=== PATIENT | male | born 1985 | race Caucasian/White ===

== ENCOUNTER 2024-12-30 07:43 | Inpatient (IN) | payer OTHER, SELFPAY ==
[2024-12-27] VITALS (17 sets, daily range): BP systolic 119–160; BP diastolic 68–129; BMI 20.4; BMI 18.5
--- NOTE | 2024-12-27 17:27 | ED.GENMED ---
History of Present Illness
General
Chief Complaint: Fall
Source: patient
Exam Limitations: none
Time Seen by Provider: 12/27/24 17:25
History of Present Illness
History of Present Illness:
See MDM
Past History
Past History
ED Past Medical History: None
ED Past Surgical History: None
Social History
Tobacco: Non-smoker
Alcohol: Daily
Phy Exam
Physical Exam
Physical Exam:
See MDM
Course
Orders/Labs/Results
Orders:
Orders
12/27/24 17:25
Shoulder, Left, Trauma CR [CR Shoulder, Trauma - Left] Urgent
Comment:
Reason For Exam: fall, left shoulder pain
12/27/24 17:26
Electrocardiogram (*1) Urgent
Reason for Study: Syncope
CT Head W/o Iv Contrast Urgent
Comment:
Reason For Exam: fall, head injury, possible new seizure
EKG- Treatment ONCE
12/27/24 17:38
Alcohol Urgent
CPK [Creatine Phosphokinase] Urgent
Complete Blood Count/With Diff Urgent
Comprehensive Metabolic Panel Urgent
Magnesium Urgent
TSH Reflex To Free T4 Urgent
12/27/24 17:48
Thiamine Injection 100 mg IV NOW STA
12/27/24 18:48
Propofol [Diprivan] 20 ml .ROUTE .STK-MED
12/27/24 18:59
Propofol [Diprivan] 20 ml .ROUTE .STK-MED
12/27/24 19:13
Shoulder, Left, Trauma CR [CR Shoulder, Trauma - Left] Urgent
Comment:
Reason For Exam: post reduction
Abnormal Lab Results
12/27/24 12/27/24
17:28 17:38
MCV 101.0 H fL
(80.0-94.0)
MCH 33.3 H pg
(27.0-31.0)
Absolute Lymphs (auto) 4.2 H 10^3/uL
(1.2-3.4)
Absolute Monos (auto) 1.3 H 10^3/uL
(0.1-0.6)
Neutrophils % 39.2 L %
(42.2-75.2)
Monocytes % 14.0 H %
(1.7-9.3)
Potassium 3.4 L mmol/L
(3.5-5.1)
Carbon Dioxide 11 L* mmol/L
(22-30)
Glucose 167 H mg/dl
(70-99)
Calcium 10.3 H mg/dl
(8.4-10.2)
Magnesium 2.4 H mg/dl
(1.6-2.3)
Total Bilirubin 2.5 H mg/dl
(0.2-1.3)
AST 344 H U/L
(17-59)
ALT 119 H U/L
(0-50)
Creatine Kinase 224 H U/L
(55-170)
Total Protein 9.3 H g/dl
(6.3-8.2)
Albumin 5.8 H g/dl
(3.5-5.0)
POC Glucose 156 H mg/dl
(70-99)
12/27/24 17:38
12/27/24 17:38
Vital Signs
Initial and Last Documented VS:
Initial Vital Signs
Pulse BP Pulse Ox
87 156/68 99
12/27/24 17:25 12/27/24 17:25 12/27/24 17:25
Last Documented Vital Signs
Temp Pulse Resp BP Pulse Ox
98.3 F 106 21 147/98 97
12/27/24 19:10 12/27/24 19:10 12/27/24 19:10 12/27/24 19:10 12/27/24 19:10
Procedures
Moderate Sedation
ASA Risk Score: Class I
Chart and allergies reviewed: Yes
Consent for anesthesia obtained: Yes
Time out completed (validating right patient & procedure): Yes
Moderate Sedation Start Time(when first medication is given): 18:53
History of difficult intubation: No
Airway free of obstruction: Yes
Patient has a gag reflex: Yes
Patient is able to open mouth: Yes
Patient has no dentures: Yes
Patient has no loose teeth: Yes
Medication administered by Provider during Moderate Sedation: IV Propofol (mg)
Total dose administered: 400
Time drug administered: 18:53
Moderate Sedation Procedure End Time: 19:10
Comment: Patient required multiple extra doses of propofol for adequate sedation
Joint/Fracture Reduction
Left Anterior Proximal Shoulder:
Indication for procedure:: Left anterior shoulder dislocation
Procedure completed by: Nicola Mcdonnell DO
Consent form signed: Yes
Joint reduced: with anesthesia sedation
Injury was: closed
Further treatement: needs re-check only
Post reduction exam: stable
Capillary Refill: normal
Peripheral Pulses: radial (left): 2+
MDM/Problems Addressed
Differential Diagnosis Includes:
Note:
CHIEF COMPLAINT(S)
Fall with suspected seizure and shoulder pain.
HISTORY OF PRESENT ILLNESS
39-year-old male presented to the emergency department following an unexpected fall while visiting his in the hospital. The fall was unwitnessed, and there is consideration of a syncopal event. Upon being found on the floor, an emergency
response was initiated, during which the patient demonstrated minimal responsiveness. At the time of evaluation in the emergency department, the patient exhibits some confusion. Notably, the patient has a tongue bite, which raises suspicion for a
seizure event. He also reports severe pain in his shoulder, which upon clinical examination is suspected to be dislocated. The patient denies any history of seizures and reports no neck pain. He currently feels groggy and confused and admits to
taking medications, although specific details of these medications were not obtained.
PHYSICAL EXAM
General: Alert, no acute distress.
Skin: Warm, dry.
Head: Normocephalic, atraumatic
Neck: Appears supple, trachea midline.
Eyes, Ears, Nose, Mouth, and Throat: Moist mucous membranes. Lateral tongue bite noted
Cardiovascular: No signs of cyanosis. Regular rate rhythm
Respiratory: Respirations are non-labored.
Abdomen: Non-distended
Musculoskeletal: Step-off noted to left shoulder but distal extremity neurovascularly
Neurological: Appears confused and postictal.
Psychiatric: Mildly irritable
DIFFERENTIAL DIAGNOSIS
The Differential Diagnosis includes, in no particular order and is not limited to:
- Seizure
- Syncope
- Orthostatic hypotension
- Cardiac arrhythmia
- Transient ischemic attack (TIA)
- Hypoglycemia
- Stroke
- Vestibular dysfunction
- Drug or alcohol intoxication
- Electrolyte imbalance
SUMMARY OF ENCOUNTER
The patient was seen in the emergency department due to a fall with a suspected seizure and shoulder pain. The unwitnessed fall and presence of a tongue bite suggested a potential seizure, and the patient exhibited some confusion upon arrival.
Clinical examination raises suspicion for shoulder dislocation. An emergency response was initiated at the time of the fall due to minimal responsiveness.
ASSESSMENT
The assessment includes possible seizure with confusion, suspected shoulder dislocation, and consideration of syncope or other causes for the unwitnessed fall.
MEDICAL DECISION MAKING
1. Number and Complexity of Problems Addressed:
Chronic conditions affecting care include possible seizure, potential syncope, and dislocated shoulder.
The Differential Diagnosis includes, in no particular order and is not limited to:
- Seizure
- Syncope
- Orthostatic hypotension
- Cardiac arrhythmia
- Transient ischemic attack (TIA)
- Hypoglycemia
- Stroke
- Vestibular dysfunction
- Drug or alcohol intoxication
- Electrolyte imbalance
2. Data:
- Category 1
- Review of clinical presentation including unwitnessed fall and presence of a tongue bite, which may indicate a seizure.
- Clinical examination suggesting shoulder dislocation.
3. Risk:
- Consideration of Admission/Observation: Escalation of care including admission/observation was considered given the complexity and risk of the patients presenting complaint, exam findings, and/or their underlying comorbidities. However,
ultimately, I feel the patient is safe for outpatient management with close follow-up. Reasoning: Work-up reassuring, does not reveal any acute life/organ threatening processes, patients symptoms well controlled upon reevaluation, reexamination is
reassuring, vitals are stable, patient agreeable with discharge, reliable for follow-up.
DIAGNOSIS
- Seizure, suspected, unspecified (ICD-10: R56.9)
- Dislocation of shoulder, unspecified (ICD-10: S43.09XA)
- Syncope and collapse (ICD-10: R55)
CARE-UPDATE
12/27/24 - :41
Patient experienced foaming at the mouth and seizure-like activity, prompting an emergency response activation by nursing staff.
CARE-UPDATE
12/27/24 - :42
Patient has no previous history of seizures. He consumes alcohol daily and had inadequate food intake earlier today. Case discussed with neurology. At the moment, no need for antiepileptic drugs
CARE-UPDATE
12/27/24 - :47
Patient advised to cease driving immediately due to high suspicion of a seizure. [employer] form completed and submitted. Follow-up with primary care or neurology required for further evaluation and clearance. Patient states his last alcohol drink was
2 days ago where he had beer liquor
SUMMARY OF ENCOUNTER
The patient presented to the emergency department following an episode of syncope versus seizure, evidenced by a tongue bite and prolonged postictal state. Lab abnormalities raised the suspicion of a new-onset seizure. Additionally, the patient
experienced a left shoulder dislocation that required propofol for reduction.
DISPOSITION
Admit to the hospital.
ASSESSMENT
Concern for new-onset seizure with postictal state. Left shoulder dislocation requiring intervention.
PROCEDURES
Propofol used for reduction of left shoulder dislocation.
DIAGNOSIS
- Seizure suspicion, new onset (ICD-10: R56.9)
- Dislocation of left shoulder (ICD-10: S43.02XA)
*Pulse Oximetry
Patient hypoxic: no
*Critical Care Note
Total Time (30-74mins, 75-104mins- exclusive of procedures): Not Applicable
ED Attending Note
-
Portions of this chart may have been created with voice recognition software.� Occasional wrong word or��sound alike� substitutions may have occurred due to the inherent limitations of voice recognition software.
Discharge Plan
Departure
Patient Disposition: Admit
Date of Disposition: 12/27/24
Time of Disposition: 19:18
Admit to: Med/Surg
Presentation/result/management discussed w/ accepting MD/DO: Hospitalist
Discharge Problem:
New onset seizure, Anterior dislocation of left shoulder
Interventions
Interventions:
*Risk Screen - Suicide Last Done: 12/27/24 18:06
*General Assessment Last Done: 12/27/24 18:06
*Neglect/Abuse Screening Last Done: 12/27/24 18:06
ED-Musculoskeletal Assessment Last Done: 12/27/24 17:50
ED- Neurological Assessment Last Done: 12/27/24 17:50
ED-Skin Assessment Last Done: 12/27/24 17:50
Discharge Date and Time
Print Language: SERBIAN
[2024-12-27 17:32] LABS: Glucose - Point of Care 156 mg/dl (70-99)
[2024-12-27 17:51] LABS: Hematocrit 48.2 % (39.0-52.0); Hemoglobin 15.9 g/dL (13.0-18.0); Mean Corp Hgb Conc. 33.0 g/dL (33.0-37.0); Mean Corpuscular Volume 101.0 fL (80.0-94.0); Nucleated Red Blood Cells % 0 % (-); Platelet Count 159 10^3/uL (130-400); Red Cell Dist. Width 12.1 % (11.5-14.5)
[2024-12-27 18:10] LABS: AST (SGOT) 344 U/L (17-59); Albumin 5.8 g/dl (3.5-5.0); Alkaline Phosphatase 116 U/L (38-126); Blood Urea Nitrogen 11 mg/dl (9-20); Calcium 10.3 mg/dl (8.4-10.2); Carbon Dioxide 11 mmol/L (22-30); Chloride 102 mmol/L (98-107); Glucose 167 mg/dl (70-99); Magnesium 2.4 mg/dl (1.6-2.3); Potassium 3.4 mmol/L (3.5-5.1); Sodium 138 mmol/L (135-145); Total Protein 9.3 g/dl (6.3-8.2); eGFR > 60.00
[2024-12-27 18:17] LABS: ALT (SGPT) 119 U/L (0-50)
[2024-12-27] MEDS: THIAMINE INJECTION 100 MG IV (18:37)
--- NOTE | 2024-12-27 19:35 | HPS.HSE ---
Family Physician
-
Family Physician:
Chief Complaint
-
fall
History of Present Illness
This is a 39-year-old with past medical history significant for asthma and history of prior alcohol abuse who was brought to the emergency department after an emergency response in the hospital where he was visiting his and found to be
unresponsive in the elevator.
Patient reported that he does drink alcohol but states amount of drinking has been reduced recently and states that he drinks up to 6 bottles of nonalcoholic beer every day. He said his last drink was 2 days ago and he has not been drinking due to
his being in labor and just had a delivery.
Patient reported that he was slightly tremulous this morning but not more so than usual. He reported that he did have a small amount of breakfast but generally felt lightheaded which was made worse while riding an elevator to get standing to eat
today. He denies prior history of withdrawal seizures. He denies any prior history of alcohol withdrawal syndrome with delirium tremens. He denies any other drug use.
Patient was found by EMS unresponsive and he had a tongue bite. He was postictal on arrival to the emergency department. He did have a dislocation of the left shoulder and is status post shoulder reduction on and had propofol during the episode.
When I spoke to the patient he was awake alert and oriented with minimal tremulousness.
In the emergency department his current vital signs were stable with a blood pressure of 141/98, pulse of 100 and respiratory rate of 20. He had a temp of 98.3 and is satting 90% on room air. ECG shows a normal sinus rhythm at a rate of [address] or T wave changes. CT of the head shows no acute findings.
The labs notable for a normal CBC. Electrolytes were notable for a bicarb of 11 with normal BUN and creatinine. He does have elevated AST to 344 ALT 04/06/2018 and a T. bili of 2.5. CPK was elevated at 220. Alcohol level was undetectable.
Medical History
Past Medical History
Past Medical History: Reports Other (etoh abuse)
Past Surgical History: Reports Other (hernia repair)
Social History
Tobacco: Vaping
Alcohol: Chronic Alcoholic
Drug: None
Personal:
Living: With Family
Family History
Family History: Not pertinent
Allergies / Home Medications
Allergies reflects when Allergies were last updated in [facility].
Home Medications with original date entered in [facility]
Allergy/Medication List:
Allergies
Allergy/AdvReac Type Severity Reaction Status Date / Time
No Known Allergies Allergy Verified 12/27/24 17:47
Review of Systems
-
Constitutional: Reports No Symptoms
EENT: Reports No Symptoms
Respiratory: Reports No Symptoms
Cardiac: Reports No Symptoms
Abdomen/GI: Reports No Symptoms
: Reports No Symptoms
Musculoskeletal: Reports No Symptoms
Skin: Reports No Symptoms
Neurological: Reports No Symptoms
Endocrine: Reports No Symptoms
Hematologic/Lymphatic: Reports No Symptoms
Psych: Reports No Symptoms
Physical Exam
Vital Signs
Vital Signs
Temp Pulse Resp BP Pulse Ox
98.3 F 106 21 147/98 97
12/27/24 19:10 12/27/24 19:10 12/27/24 19:10 12/27/24 19:10 12/27/24 19:10
Physical Exam
General: No Apparent Distress and Other (underweight appearing)
HEENT: NormoCephalic, Moist mucous membranes, Atraumatic and Oxygen
Respiratory: Clear
Cardiac: S1/S2 and Regular Rhythm; No Murmur or Rub
GI: Soft, Non Tender, Non Distended and Normal Bowel Sounds; No Organomegaly
Rectal: Deferred by Provider
Musculoskeletal: No Clubbing, No Cyanosis and No Edema
Skin: No Rash
Neuro: AO x 3 and Nonfocal/grossly intact
Psych: Calm
Laboratory Results
-
10/24/25 17:38
12/27/24 17:38
Laboratory Results
Total Bilirubin 2.5 mg/dl (0.2-1.3) H 12/27/24 17:38
AST 344 U/L (17-59) H 12/27/24 17:38
ALT 119 U/L (0-50) H 12/27/24 17:38
Alkaline Phosphatase 116 U/L (38-126) 12/27/24 17:38
Data Reviewed
-
Diagnostic Radiology: Report Reviewed by me
Medical Tests (Nuc Med, Echo, EKG etc): Image Personally Visualized and interpreted
Lab Data: Labs Reviewed by me
Impression/Plan
-
IMPRESSION:
39 y.o with history of prior ETOH abuse states cutting down who had a fall while in the elevator and noted to be unresponsive, had tongue biting (left lateral surface of tongue), was post-ictal in presentation but now alert and oriented. The tongue
biting, post-ictal depression, h/o etoh and labs are c/w seizure episode. Last drink was 2 days ago. Denies prior history of withdrawal seizures. Reports daily intake of at least 6 'non-alcoholic' beers. Tbili of 2.5 with AST/ALT ratio suggests
ongoing alcoholic liver injury. Currently without signs of severe withdrawal but is recently post-ictal and has just received propofol for shoulder reduction.
PLAN:
Seizure - Suspected alcohol withdrawal seizure, last drink about 48 hours ago. Mod to High risk for DT.
- admit to telemetry for now
- start MSAS withdrawal protocol
- IV fluids with thiamine/folate supplementation
- start phenobarbital taper
- UDS
- follow up labs
- case management
- psych consult
DVT PPX - SCDs
Code status - Full Code
[2024-12-27] MEDS: ATIVAN 1 MG IV (19:51)
--- NOTE | 2024-12-27 21:30 | PTCARENOTE ---
Pillows placed on bed rails for safety while awaiting seizure pads.
--- NOTE | 2024-12-27 21:30 | PTCARENOTE ---
Received patient from ED. Patient ambulated with minimum assist to bedside. Patient assessed. Sling in place on left arm. Pain was controlled in the ED with Morphine per the patient. VSS. Sinus rhythm on the monitor. Patient oriented to the unit.
Call fernandes in reach. Patient verbalized an understanding to ring for all transfers. Bed alarm placed for safety.
[2024-12-27] MEDS: D5LR 1000 IV (22:30)
[2024-12-27] MEDS: PHENOBARBITAL 104 MG IV (22:43)
[2024-12-28] MEDS: THIAMINE INJECTION 200 MG IV ×4 (00:20→23:23)
[2024-12-28] MEDS: TORADOL 15 MG IV ×4 (00:34→20:21)
[2024-12-28 03:06] VITALS: BP 132/79
[2024-12-28 07:28] VITALS: BP 149/75
--- NOTE | 2024-12-28 07:29 | W.PN.HOSP.TC ---
Today's Communication/Plan
-
Continue phenobarb taper and alcohol withdrawal protocol
Assessment / Plan
Assessment / Plan
Physical Exam
General: No Apparent Distress
HEENT: Normocephalic, Moist mucous membranes
Respiratory: Clear to Auscultation Bilaterally
Cardiac: S1/S2 and Regular Rhythm. Tachycardic.
GI: Soft, Non Tender, Non Distended and Normal Bowel Sounds;
Musculoskeletal: No Cyanosis and No Edema
Skin: Warm. Dry.
Neuro: AAO x 3 and Nonfocal/grossly intact
Psych: Calm
Assessment/Plan
39-year-old amle with past medical history significant for asthma and history of prior alcohol abuse who was brought to the emergency department after an emergency response in the hospital where he was visiting his and found to be unresponsive
in the elevator. Patient reported that he does drink alcohol but states amount of drinking has been reduced recently and stated that he drinks up to 6 bottles of nonalcoholic beer every day. He said his last drink was on 12/25/24 and he has not
been drinking due to his being in labor and just had a delivery.
Patient reported that he was slightly tremulous on 12/27/24 morning but not more so than usual. He denied prior history of withdrawal seizures. He denied any prior history of alcohol withdrawal syndrome with delirium tremens. He denies any other
drug use.
Patient was found by EMS unresponsive and he had a tongue bite. He was postictal on arrival to the emergency department. He did have a dislocation of the left shoulder and is status post shoulder reduction on and had propofol during the episode.
The labs notable for a normal CBC. Electrolytes were notable for a bicarb of 11 with normal BUN and creatinine. He does have elevated AST to 344 ALT 04/06/2018 and a T. bili of 2.5. CPK was elevated at 220. Alcohol level was undetectable.
Reports of daily intake of at least 6 'non-alcoholic' beers
Seizure - Suspected alcohol withdrawal seizure, last drink about 48 hours ago. Mod to High risk for DT.
- Last drink was 12/25/24
- The tongue biting, post-ictal depression, h/o etoh and labs are c/w seizure episode.
- Continue MSAS withdrawal protocol
- IV fluids with thiamine/folate supplementation
- Continue phenobarbital taper
- UDS was positive for benzos and barbiturates, but patient received Ativan in the ER on 12/27/24 evening and also getting Phenobarb, both were given before the UDS
- case management
- psych consult as history seems inconsistent with the overall clinical picture of alcohol withdrawal and family saying he has not had much alcohol recently
- Patient's family requested neurology consult; neurology has been consulted
- ED provider filled out [employer] form.
Dislocated Shoulder from Suspected Seizure and Fall
- Was reduced in the ER
Anion Gap Metabolic Acidosis
- Patient had not eaten or drank any fluids for 2-3 days and also suspected alcohol use as well, suspected starvation ketoacidosis or alcoholic ketoacidosis
- Resolved with IV fluids
Transaminitis
-Patient's labs from October 2024 were borderline normal with his AST and ALT, now the levels are worse
-AST>ALT, by a ratio greater than 2:1 which strongly suggests alcoholic liver injury
Hypokalemia
-Replaced
-Continue to monitor
DVT PPX - SCDs. Lovenox.
Code status - Full Code
Anticipated Discharge: > 48 hours
Subjective/Interval History
-
Date of Service: December 28, 2024
Patient was seen and examined. He denied any new symptoms or complaints.
Objective Data
-
Labs:
Laboratory Results
12/28/24
06:25
PT Pending
INR Pending
APTT Pending
Vital Signs:
Vital Signs
Temp Pulse Resp BP Pulse Ox
98.3 F 81 18 149/75 98
12/28/24 07:28 12/28/24 07:28 12/28/24 07:28 12/28/24 07:28 12/28/24 07:28
I&O
12/27/24 12/28/24 12/29/24
06:59 06:59 06:59
Intake Total 1140 / 1140
Balance 1140 / 1140
[2024-12-28 07:34] LABS: INR 0.94; PT 12.9 Sec (11.4-14.6)
[2024-12-28 07:35] LABS: APTT 26.7 Sec (23.4-35.0)
[2024-12-28] MEDS: D5LR 1000 IV ×2 (07:36→18:30)
[2024-12-28] MEDS: FOLVITE 1 MG PO (07:37)
[2024-12-28] MEDS: PHENOBARBITAL 97.5 MG IV ×3 (07:37→21:48)
[2024-12-28 08:03] LABS: ALT (SGPT) 89 U/L (0-50); AST (SGOT) 133 U/L (17-59); Albumin 4.0 g/dl (3.5-5.0); Alkaline Phosphatase 88 U/L (38-126); Blood Urea Nitrogen 12 mg/dl (9-20); Calcium 9.0 mg/dl (8.4-10.2); Carbon Dioxide 26 mmol/L (22-30); Chloride 106 mmol/L (98-107); Estimated Creatinine Clearance > 125 ml/min; GGTP 725 U/L (15-73); Glucose 101 mg/dl (70-99); Magnesium 2.3 mg/dl (1.6-2.3); Potassium 3.2 mmol/L (3.5-5.1); Sodium 135 mmol/L (135-145); Total Protein 6.9 g/dl (6.3-8.2); eGFR > 60.00
[2024-12-28 11:41] VITALS: BP 146/85
[2024-12-28] MEDS: KCL 40 MEQ PO (12:09)
[2024-12-28 12:21] LABS: Urine Character Clear (Clear)
[2024-12-28 12:59] LABS: Urine Red Blood Cell 0-2 /HPF (0-2); Urine Squamous Cell None seen /LPF (Few); Urine White Cell 0-2 /HPF (0-5)
--- NOTE | 2024-12-28 13:56 | CM ---
CM following re: discharge planning.
Reviewed pt's chart, met with pt.
Pt is a 39 year old male, admitted with OBS status and primary dx of Seizure - Suspected alcohol withdrawal seizure, last drink about 48 hours ago. OBS status explained to the pt, pt expressed understanding OBS letter signed, placed on chart, pt
has a copy.
Pt reports he lives with spouse and 3 children in a 2SH, 3 steps to enter. Pt admitted to significant h/o alcohol abuse that started at the age of 21 from being a social drinker and per pt in the past 4 years he has been drinking heavily. Pt reports
he choice of drink is beer and hard liquor. Pt reports he tried to go to AA meetings and did nit like it, never been in inpatient D&A rehab. Pt stated after talking to his he decided to safe the family and pr expressed his strong desire to go
to inpatient residential D&A rehab. pt agrees to meet with [facility] team. A referral to [facility] made.
D/C plan: Inpatient residential D&A rehab. [facility] following.
CM will follow to assist pt with discharge to inpatient residential D&A rehab.
[2024-12-28 15:01] VITALS: BP 139/78
--- NOTE | 2024-12-28 15:58 | CS.PSYCHR ---
Consult Summary - Psychiatry
-
Patient seen by me 12/28/2024 from 2:05pm-2:35pm
Psychiatry consult for alcohol use disorder/withdrawal seizure. 39 yo male admitted today after possible seizure. Patient has given inconsistent history. Case management note indicates that patient was forthcoming with regular alcohol use and agreed
to D&A rehab treatment, at which time [facility] referral was made. With me, he says his last alcoholic drink was in November and that he has only been drinking non alcoholic beer since then. He then says he does not know if he needs rehab or not. He
does admit that at the peak of his drinking dependency, he was drinking 1/2-1 pint of Enrrique Ledezma a day. I spoke with both his parents who are upset that his seizure is being called alcoholic withdrawal bc they believe he hasn't drank since
November. They think patient was overtired and had not been eating properly which lead to this admission.
He denies mental health history other than ADHD.
UDS + barbs, benzos
no etoh detected
MSE- patient is cooperative but answers are vague particularly regarding alcohol use. He denies depression. He denies SI/HI/AVH. no delusions. fully oriented. appears restless.
Past psych- reports ADHD history. does not know what medication he was taking
PMH- left shoulder dislocations, new onset seizure, self reported lab abnormality history secondary to alcohol
Social- lives with and 2 kids. is currently also at since she just had their third child
Family history- mother has history of drinking wine
A/P- 39 yo male with alcohol use disorder and inconsistent history of this condition. Concern was for alcohol withdrawal seizure and would treat this as alcohol withdrawal. encouraged patient to think about what kind of help he thinks he needs and
if D&A rehab would be a reasonable next step once medically stable. The choice is his. He understands. Case discussed with primary team.
--- NOTE | 2024-12-28 16:55 | CON.NEURO ---
Consultation
Order
Date of Consultation: 12/28/24
Requesting Provider: Gilberto Solo MD
Reason for Consult: Seizure
Neurology Consultation Note.
HPI: This is a 39-year-old right-handed man was found unresponsive in a hospital elevator on 12/27/2024.
Mr. Calixto admits to be sleep-deprived for approximately 32-36 hours, getting only brief 20-minute catnaps. He drove his to the hospital around midnight on , and she delivered their third baby.
The patient describes poor oral intake, noting he is 'known to not eat a lot' and typically prefers eating at night. Yesterday morning he had a small piece of his 's omelet containing mushrooms, which he dislikes, and this 'almost made him
vomit' and ruined his appetite for hours. He was going downstairs to get a pretzel from a vending machine when the incident occurred. He remembers going down in the elevator but his next memory is waking up in the emergency room. No reports of head
trauma, headaches, change in vision, history of febrile seizure. Patient did have associated tongue injury with a spell.
Mr. Andres suffered left shoulder dislocation during the episode and underwent successful reduction.
The patient denies any history of seizures, including febrile seizures as a child. He reports no numbness or tingling in his left hand but notes ongoing shoulder pain, rating it as improved from earlier. 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
Regarding substance use, he reports his last alcoholic drink was approximately 6 months ago. He had been drinking nightly for 3-4 years starting during when he lost his job and experienced stress with their first baby, typically having whiskey
on the rocks. He weaned off alcohol after he was found to have hepatic steatosis and now drinks non-alcoholic beer. He was previously on Adderall but discontinued it because his felt it wasn't helping with his focus issues, and his primary care
physician was considering alternative medications or dosing when liver issues were discovered through routine blood work.
ER VS: 156/68, 87�139, afebrile
EKG:NSR, QTcB Int : 467 ms
PDMP:Dextroamp-Amphetamin 20 Mg 60 tablets filled in on .
Labs: Glucose�167, EtOH�negative, normal sodium, CO2�11, corrected Ca 8.9�mg/dL, magnesium�2.4, total bili�2.5, GGT�725, AST�344, ALT�190, CK�224, normal TSH, MCV�101.0,, UA�positive for leukocyte esterase, bacteria.
UA tox�positive for benzodiazepines and barbiturates.
MAR: Lorazepam, phenobarbital.
CT head wo contrast�no acute abnormality
PMH: hepatic steatosis, alcohol use DO in remission, ADHD
PSH: Hernia repair, wisdom teeth extraction
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
FH: mother-stroke, alcohol addiction
All:NKDA
ROS: General: Positive for fatigue and decreased appetite.
Musculoskeletal: Positive for left shoulder pain with limited range of motion.
Neurological: Negative for numbness or tingling in left hand.
General: Well developed. In no acute distress.
Cardio: Regular rate and rhythm without murmur. Extremities are without cyanosis or edema.
Neuro:
Mental Status: Alert, oriented to person, place, and date. Normal attention and recall. Good fund of knowledge. Follows complex requests across the midline. Comprehension, naming, and repetition intact.
Cranial Nerves: Pupils are equally round and reactive to light. EOMs full. Visual dominguez full to confrontation. No ptosis. No nystagmus. V1-V3 intact to light touch and pinprick bilaterally, symmetric. Face symmetric. Normal hearing AU. The
palate elevated well. SCMs and traps 5/5. Tongue midline. No dysarthria.
Motor: Normal bulk and tone. No pronator or arm drift. Strength 5/5 throughout. No clonus.
Reflexes: 2+ throughout the upper extremities and knees. Plantar responses flexor bilaterally. Negative clonus bilateral
Sensory: Normal vibration at the toes
Coordination: No dysmetria or tremor.
Gait: deferred
Assessment and Plan:
I. Symptomatic seizure
II. Alcohol use disorder in remission
III. Increased QTcB Int
-Seizure precaution
-No indications for long-term AED
-No driving for 6 months
-Please continue IV thiamine
-Continue phenobarbital
-Brain MRI without michael
-Routine EEG
- Case was discussed with patient's spouse
I personally reviewed all radiology and labs along with past medical records pertinent to current medical problems. Total time spent in patient care is 61 minutes.
Thank you for allowing us to participate in the care of this patient. We will continue to follow. Please do not hesitate to contact us with any questions or concerns.
Subjective/Objective
Subjective Data
Date of Service: December 28, 2024
Objective Data
Vital Signs
Temp Pulse Resp BP Pulse Ox
36.9 C 83 17 139/78 99
12/28/24 15:01 12/28/24 15:01 12/28/24 15:01 12/28/24 15:01 12/28/24 15:01
Lab Results
12/27/24 17:38
12/28/24 07:28
PT 12.9 Sec (11.4-14.6) 12/28/24 06:25
INR 0.94 12/28/24 06:25
APTT 26.7 Sec (23.4-35.0) 12/28/24 06:25
Sodium Cancelled 12/28/24 07:28
Potassium Cancelled 12/28/24 07:28
BUN Cancelled 12/28/24 07:28
Glucose Cancelled 12/28/24 07:28
Calcium Cancelled 12/28/24 07:28
Phosphorus 3.6 mg/dl (2.5-4.5) 12/28/24 06:25
Ur Buprenorphine Negative (Negative) 12/28/24 11:43
Patient Allergies
No Known Allergies Allergy (Verified 12/27/24 17:47)
Medications
-
Active Medications
Generic Name Dose Route Start Last Admin
Trade Name Freq PRN Reason Stop Dose Admin
Acetaminophen 650 mg 12/27/24 21:40
Acetaminophen 325 Mg Tablet PO 01/24/25 21:39
Q6HPRN PRN
mild pain/ fever>100.5F
Folic Acid 1 mg 12/28/24 08:00 12/28/24 07:37
Folic Acid 1 Mg Tablet PO 01/25/25 07:59 1 mg
DAILY ALIX Administration
Folic Acid 1 mg/ Sodium 50.2 mls @ 200.8 mls/hr 12/27/24 21:40
Chloride IV 01/24/25 21:39
DAILYPRN PRN
if NPO
Dextrose/Lactated Ringer's 1,000 mls @ 75 mls/hr 12/27/24 21:40 12/28/24 07:36
D5lr IV 1,000 mls
.[id number] ALIX Administration
Ketorolac Tromethamine 15 mg 12/27/24 21:40 12/28/24 12:53
Ketorolac 15 Mg/Ml Injection IV 01/01/25 21:39 15 mg
Q6HPRN PRN Administration
moderate pain
Lorazepam 1 mg 12/27/24 21:40
Lorazepam 1 Mg Tablet PO 01/24/25 21:39
Q2HPRN PRN
MSAS 5-7
Lorazepam 1 mg 12/27/24 21:40
Lorazepam 2 Mg/Ml Vial IV 01/24/25 21:39
Q1HPRN PRN
MSAS 8-11
Lorazepam 2 mg 12/27/24 21:40
Lorazepam 2 Mg/Ml Vial IV 01/24/25 21:39
Q1HPRN PRN
MSAS > 11
Phenobarbital Sodium 64.8 mg 12/30/24 08:00
Phenobarbital 32.4 Mg Tablet PO 12/31/24 22:01
TID ALIX
Phenobarbital Sodium 32.4 mg 01/01/25 08:00
Phenobarbital 32.4 Mg Tablet PO 01/02/25 22:01
TID ALIX
Phenobarbital Sodium 97.5 mg 12/28/24 08:00 12/28/24 15:08
Phenobarbital (65 Mg/Ml) 1 Ml Vial IV 12/29/24 22:01 97.5 mg
TID ALIX Administration
Sodium Chloride 0 ml 12/27/24 21:40
Sodium Chloride 0.9% (Preservative Free) 10 Ml Vial IV 01/24/25 21:39
PRN PRN
To dilute IV Ativan
Protocol
Thiamine HCl 200 mg 12/28/24 00:00 12/28/24 15:08
Thiamine (100 Mg/Ml) 2 Ml Vial IV 12/30/24 16:01 200 mg
Q8 ALIX Administration
Thiamine HCl 100 mg 12/30/24 20:00
Thiamine 100 Mg Tablet PO 01/27/25 19:59
BID ALIX
Vital Signs and Labs
-
Vital Signs and Labs:
Vital Signs
Temp Pulse Resp BP Pulse Ox
36.9 C 83 17 139/78 99
12/28/24 15:01 12/28/24 15:01 12/28/24 15:01 12/28/24 15:01 12/28/24 15:01
Lab Results
12/27/24 17:38
12/28/24 07:28
PT 12.9 Sec (11.4-14.6) 12/28/24 06:25
INR 0.94 12/28/24 06:25
APTT 26.7 Sec (23.4-35.0) 12/28/24 06:25
Sodium Cancelled 12/28/24 07:28
Potassium Cancelled 12/28/24 07:28
BUN Cancelled 12/28/24 07:28
Glucose Cancelled 12/28/24 07:28
Calcium Cancelled 12/28/24 07:28
Phosphorus 3.6 mg/dl (2.5-4.5) 12/28/24 06:25
Ur Buprenorphine Negative (Negative) 12/28/24 11:43
Medications
-
Medications:
Generic Name Dose Route Start Last Admin
Trade Name Freq PRN Reason Stop Dose Admin
Acetaminophen 650 mg 12/27/24 21:40
Acetaminophen 325 Mg Tablet PO 01/24/25 21:39
Q6HPRN PRN
mild pain/ fever>100.5F
Folic Acid 1 mg 12/28/24 08:00 12/28/24 07:37
Folic Acid 1 Mg Tablet PO 01/25/25 07:59 1 mg
DAILY ALIX Administration
Folic Acid 1 mg/ Sodium 50.2 mls @ 200.8 mls/hr 12/27/24 21:40
Chloride IV 01/24/25 21:39
DAILYPRN PRN
if NPO
Dextrose/Lactated Ringer's 1,000 mls @ 75 mls/hr 12/27/24 21:40 12/28/24 07:36
D5lr IV 1,000 mls
.[id number] ALIX Administration
Ketorolac Tromethamine 15 mg 12/27/24 21:40 12/28/24 12:53
Ketorolac 15 Mg/Ml Injection IV 01/01/25 21:39 15 mg
Q6HPRN PRN Administration
moderate pain
Lorazepam 1 mg 12/27/24 21:40
Lorazepam 1 Mg Tablet PO 01/24/25 21:39
Q2HPRN PRN
MSAS 5-7
Lorazepam 1 mg 12/27/24 21:40
Lorazepam 2 Mg/Ml Vial IV 01/24/25 21:39
Q1HPRN PRN
MSAS 8-11
Lorazepam 2 mg 12/27/24 21:40
Lorazepam 2 Mg/Ml Vial IV 01/24/25 21:39
Q1HPRN PRN
MSAS > 11
Phenobarbital Sodium 64.8 mg 12/30/24 08:00
Phenobarbital 32.4 Mg Tablet PO 12/31/24 22:01
TID ALIX
Phenobarbital Sodium 32.4 mg 01/01/25 08:00
Phenobarbital 32.4 Mg Tablet PO 01/02/25 22:01
TID ALIX
Phenobarbital Sodium 97.5 mg 12/28/24 08:00 12/28/24 15:08
Phenobarbital (65 Mg/Ml) 1 Ml Vial IV 12/29/24 22:01 97.5 mg
TID ALIX Administration
Sodium Chloride 0 ml 12/27/24 21:40
Sodium Chloride 0.9% (Preservative Free) 10 Ml Vial IV 01/24/25 21:39
PRN PRN
To dilute IV Ativan
Protocol
Thiamine HCl 200 mg 12/28/24 00:00 12/28/24 15:08
Thiamine (100 Mg/Ml) 2 Ml Vial IV 12/30/24 16:01 200 mg
Q8 ALIX Administration
Thiamine HCl 100 mg 12/30/24 20:00
Thiamine 100 Mg Tablet PO 01/27/25 19:59
BID ALIX
--- NOTE | 2024-12-28 16:58 | PTCARENOTE ---
Patient AAOX3, ambulatory in room though occasionally unsteady on feet, bed alarm in place. MSAS protocol in place per MD order, patient NSR on monitor, mild hand tremors and diaphoresis at times, patient states no complaints other than L shoulder
soreness partially relieved with PRN IV Toradol - see MAY. L arm in sling, IVF infusing through R wrist. Patient continually denies any recent alcohol use to this RN - MD aware.
[2024-12-28] MEDS: LOVENOX 40 MG SC (18:30)
[2024-12-28 19:21] VITALS: BP 133/78
[2024-12-28 20:51] LABS: Potassium 3.6 mmol/L (3.5-5.1)
[2024-12-28 23:28] VITALS: BP 141/89
[2024-12-29 03:49] VITALS: BP 126/80
[2024-12-29 07:16] VITALS: BP 148/85
[2024-12-29] MEDS: D5LR 1000 IV (08:14)
[2024-12-29] MEDS: TORADOL 15 MG IV (08:15)
[2024-12-29] MEDS: PHENOBARBITAL 97.5 MG IV ×3 (08:16→23:46)
[2024-12-29] MEDS: THIAMINE INJECTION 200 MG IV ×3 (08:16→23:45)
[2024-12-29] MEDS: FOLVITE 1 MG PO (08:16)
[2024-12-29 09:27] LABS: Hematocrit 36.3 % (39.0-52.0); Hemoglobin 13.0 g/dL (13.0-18.0); Mean Corp Hgb Conc. 35.8 g/dL (33.0-37.0); Mean Corpuscular Volume 95.3 fL (80.0-94.0); Platelet Count 113 10^3/uL (130-400); Red Cell Dist. Width 11.9 % (11.5-14.5)
[2024-12-29 09:49] LABS: ALT (SGPT) 64 U/L (0-50); AST (SGOT) 73 U/L (17-59); Albumin 3.9 g/dl (3.5-5.0); Alkaline Phosphatase 74 U/L (38-126); Blood Urea Nitrogen 6 mg/dl (9-20); Calcium 8.9 mg/dl (8.4-10.2); Carbon Dioxide 29 mmol/L (22-30); Chloride 106 mmol/L (98-107); Estimated Creatinine Clearance > 125 ml/min; Glucose 93 mg/dl (70-99); Potassium 3.4 mmol/L (3.5-5.1); Sodium 136 mmol/L (135-145); Total Protein 6.7 g/dl (6.3-8.2); eGFR > 60.00
--- NOTE | 2024-12-29 11:06 | W.PN.NEURO.1 ---
Today's Communication / Plan
-
.
Subjective/Objective
Subjective Data
Date of Service: December 29, 2024
Neurology follow-up note.
HPI: No acute events overnight. No recurrent seizures. Patient endorses ongoing insomnia.
Brain MRI�no acute abnormalities.
PMH: hepatic steatosis, alcohol use DO in remission, ADHD
PSH: Hernia repair, wisdom teeth extraction
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
FH: mother-stroke, alcohol addiction
All:NKDA
ROS: General: Positive for fatigue and decreased appetite.
Musculoskeletal: Positive for left shoulder pain with limited range of motion.
Neurological: Negative for numbness or tingling in left hand.
General: Well developed. In no acute distress.
Cardio: Regular rate and rhythm without murmur. Extremities are without cyanosis or edema.
Neuro:
Mental Status: Alert, oriented to person, place, and date. Normal attention and recall. Good fund of knowledge. Follows complex requests across the midline. Comprehension, naming, and repetition intact.
Cranial Nerves: Pupils are equally round and reactive to light. EOMs full. Visual dominguez full to confrontation. No ptosis. No nystagmus. V1-V3 intact to light touch and pinprick bilaterally, symmetric. Face symmetric. Normal hearing AU. The
palate elevated well. SCMs and traps 5/5. Tongue midline. No dysarthria.
Motor: Normal bulk and tone. No pronator or arm drift. Strength 5/5 throughout. No clonus.
Coordination: No dysmetria or tremor.
Gait: deferred
Assessment and Plan:
I. Symptomatic seizure
II. Alcohol use disorder
III. Increased QTcB Int
- Seizure precaution
- No driving for 6 months
- Please continue IV thiamine, PB
- Routine EEG
I personally reviewed all radiology and labs along with past medical records pertinent to current medical problems. Total time spent in patient care is 25 minutes.
Thank you for allowing us to participate in the care of this patient. Please do not hesitate to contact us with any questions or concerns.
Objective Data
Vital Signs
Temp Pulse Resp BP Pulse Ox
37.0 C 73 16 148/85 99
12/29/24 07:16 12/29/24 07:16 12/29/24 07:16 12/29/24 07:16 12/29/24 07:16
Lab Results
12/29/24 08:42
12/29/24 08:41
PT 12.9 Sec (11.4-14.6) 12/28/24 06:25
INR 0.94 12/28/24 06:25
APTT 26.7 Sec (23.4-35.0) 12/28/24 06:25
Sodium 136 mmol/L (135-145) 12/29/24 08:41
Potassium 3.4 mmol/L (3.5-5.1) L 12/29/24 08:41
BUN 6 mg/dl (9-20) L 12/29/24 08:41
Glucose 93 mg/dl (70-99) 12/29/24 08:41
Calcium 8.9 mg/dl (8.4-10.2) 12/29/24 08:41
Phosphorus 3.6 mg/dl (2.5-4.5) 12/28/24 06:25
Ur Buprenorphine Negative (Negative) 12/28/24 11:43
Patient Allergies
No Known Allergies Allergy (Verified 12/27/24 17:47)
Vital Signs and Labs
-
Vital Signs and Labs:
Vital Signs
Temp Pulse Resp BP Pulse Ox
37.0 C 73 16 148/85 99
12/29/24 07:16 12/29/24 07:16 12/29/24 07:16 12/29/24 07:16 12/29/24 07:16
Lab Results
12/29/24 08:42
12/29/24 08:41
PT 12.9 Sec (11.4-14.6) 12/28/24 06:25
INR 0.94 12/28/24 06:25
APTT 26.7 Sec (23.4-35.0) 12/28/24 06:25
Sodium 136 mmol/L (135-145) 12/29/24 08:41
Potassium 3.4 mmol/L (3.5-5.1) L 12/29/24 08:41
BUN 6 mg/dl (9-20) L 12/29/24 08:41
Glucose 93 mg/dl (70-99) 12/29/24 08:41
Calcium 8.9 mg/dl (8.4-10.2) 12/29/24 08:41
Phosphorus 3.6 mg/dl (2.5-4.5) 12/28/24 06:25
Ur Buprenorphine Negative (Negative) 12/28/24 11:43
Medications
-
Medications:
Generic Name Dose Route Start Last Admin
Trade Name Freq PRN Reason Stop Dose Admin
Acetaminophen 650 mg 12/27/24 21:40
Acetaminophen 325 Mg Tablet PO 01/24/25 21:39
Q6HPRN PRN
mild pain/ fever>100.5F
Enoxaparin Sodium 40 mg 12/28/24 19:00 12/28/24 18:30
Enoxaparin Sodium 40 Mg/0.4 Ml Syringe SC 01/25/25 18:59 40 mg
QPM ALIX Administration
Folic Acid 1 mg 12/28/24 08:00 12/29/24 08:16
Folic Acid 1 Mg Tablet PO 01/25/25 07:59 1 mg
DAILY ALIX Administration
Folic Acid 1 mg/ Sodium 50.2 mls @ 200.8 mls/hr 12/27/24 21:40
Chloride IV 01/24/25 21:39
DAILYPRN PRN
if NPO
Dextrose/Lactated Ringer's 1,000 mls @ 75 mls/hr 12/27/24 21:40 12/29/24 08:14
D5lr IV 1,000 mls
.[id number] ALIX Administration
Ketorolac Tromethamine 15 mg 12/27/24 21:40 12/29/24 08:15
Ketorolac 15 Mg/Ml Injection IV 01/01/25 21:39 15 mg
Q6HPRN PRN Administration
moderate pain
Lorazepam 1 mg 12/27/24 21:40
Lorazepam 1 Mg Tablet PO 01/24/25 21:39
Q2HPRN PRN
MSAS 5-7
Lorazepam 1 mg 12/27/24 21:40
Lorazepam 2 Mg/Ml Vial IV 01/24/25 21:39
Q1HPRN PRN
MSAS 8-11
Lorazepam 2 mg 12/27/24 21:40
Lorazepam 2 Mg/Ml Vial IV 01/24/25 21:39
Q1HPRN PRN
MSAS > 11
Phenobarbital Sodium 64.8 mg 12/30/24 08:00
Phenobarbital 32.4 Mg Tablet PO 12/31/24 22:01
TID ALIX
Phenobarbital Sodium 32.4 mg 01/01/25 08:00
Phenobarbital 32.4 Mg Tablet PO 01/02/25 22:01
TID ALIX
Phenobarbital Sodium 97.5 mg 12/28/24 08:00 12/29/24 08:16
Phenobarbital (65 Mg/Ml) 1 Ml Vial IV 12/29/24 22:01 97.5 mg
TID ALXI Administration
Sodium Chloride 0 ml 12/27/24 21:40
Sodium Chloride 0.9% (Preservative Free) 10 Ml Vial IV 01/24/25 21:39
PRN PRN
To dilute IV Ativan
Protocol
Thiamine HCl 200 mg 12/28/24 00:00 12/29/24 08:16
Thiamine (100 Mg/Ml) 2 Ml Vial IV 12/30/24 16:01 200 mg
Q8 ALIX Administration
Thiamine HCl 100 mg 12/30/24 20:00
Thiamine 100 Mg Tablet PO 01/27/25 19:59
BID ALIX
[2024-12-29 11:29] VITALS: BP 148/96
--- NOTE | 2024-12-29 12:52 | W.PN.UPDATE ---
Update Note
Progress Note Update
Patient seen by me on 12/29/2024 from 12:05pm-12:15pm
Psychiatry follow up for alcohol use disorder. Patient states he is feeling ok today. He reports limited sleep last night. We discussed the discrepancy in the history he offered CM vs what he offered me regarding his alcohol use history. He states
he felt pressured by CM to agree to inpatient D&A rehab but that he thinks he is actually doing well and with non-alcoholic beer and does not need it. He states he wants to go home to his family/new baby when he is discharged. He is open to getting
information about D&A treatment programs in case he is interested in the future.
MSE- good eye contact. fluent speech. goal directed. still vague on drinking history timeline. denies SI/HI/AVH. no delusions. fully oriented
A/P- 39 yo male with alcohol use disorder history. Not currently interested in inpatient treatment program. Psychiatry will sign off. please contact team with further questions or concerns.
[2024-12-29 16:21] VITALS: BP 153/96
[2024-12-29] MEDS: LOVENOX 40 MG SC (17:39)
--- NOTE | 2024-12-29 18:30 | PTCARENOTE ---
Patient AAOX3, ambulatory in room, showered with supervision per MD order, steady on feet. Okay to come off bed alarm per MD. MSAS protocol in place, IVF infusing.
[2024-12-29 19:00] VITALS: BP 134/86
--- NOTE | 2024-12-29 19:40 | W.PN.HOSP.TC ---
Today's Communication/Plan
-
Continue Phenobarb taper. Patient looks improved today, less tremulous, appears to be communicating more clearly.
Tachycardia also improved (yesterday after phenobarb taper was started patient was still tachycardic, but today is not tachycardic)
Continue thiamine
Assessment / Plan
Assessment / Plan
Physical Exam
General: No Apparent Distress. Less tremulous today.
HEENT: Normocephalic, Moist mucous membranes
Respiratory: Clear to Auscultation Bilaterally
Cardiac: S1/S2 and Regular Rhythm. Tachycardic.
GI: Soft, Non Tender, Non Distended and Normal Bowel Sounds;
Musculoskeletal: No Cyanosis and No Edema
Skin: Warm. Dry.
Neuro: AAO x 3 and Nonfocal/grossly intact
Psych: Calm
Assessment/Plan
39-year-old amle with past medical history significant for asthma and history of prior alcohol abuse who was brought to the emergency department after an emergency response in the hospital where he was visiting his and found to be unresponsive
in the elevator. Patient reported that he does drink alcohol but states amount of drinking has been reduced recently and stated that he drinks up to 6 bottles of nonalcoholic beer every day. He said his last drink was on 12/25/24 and he has not
been drinking due to his being in labor and just had a delivery.
Patient reported that he was slightly tremulous on 12/27/24 morning but not more so than usual. He denied prior history of withdrawal seizures. He denied any prior history of alcohol withdrawal syndrome with delirium tremens. He denies any other
drug use.
Patient was found by EMS unresponsive and he had a tongue bite. He was postictal on arrival to the emergency department. He did have a dislocation of the left shoulder and is status post shoulder reduction on and had propofol during the episode.
Reports of daily intake of at least 6 'non-alcoholic' beers
Seizure - Suspected alcohol withdrawal seizure
- Last drink was 12/25/24
- The tongue biting, post-ictal depression, h/o etoh and labs are c/w seizure episode.
- Continue MSAS withdrawal protocol
- IV fluids with thiamine/folate supplementation
- Continue phenobarbital taper
- UDS was positive for benzos and barbiturates, but patient received Ativan in the ER on 12/27/24 evening and also getting Phenobarb, both were given before the UDS
- case management
- psych consult as history seems inconsistent with the overall clinical picture of alcohol withdrawal and family saying he has not had much alcohol recently
- Patient is not currently interested in inpatient alcohol treatment program
- Patient's family requested neurology consult; neurology has been consulted -- neurology ordered MRI which was unremarkable, EEG as per neuro
- ED provider filled out [employer] form.
Dislocated Shoulder from Suspected Seizure and Fall
- Was reduced in the ER
Anion Gap Metabolic Acidosis
- Patient had not eaten or drank any fluids for 2-3 days and also suspected alcohol use as well, suspected starvation ketoacidosis or alcoholic ketoacidosis
- Resolved rapidly with IV fluids
Transaminitis
-Patient's labs from October 2024 were borderline normal with his AST and ALT, now the levels are worse
-On admission, AST>ALT, by a ratio greater than 2:1 which strongly suggested alcoholic liver injury -- although now it seems to be improving and ratio is less
Hypokalemia
-Could be from Dextrose containing fluids stimulating Insulin
-Replaced
-Check magnesium
-Continue to monitor
DVT PPX - SCDs. Lovenox.
Code status - Full Code
Anticipated Discharge: 24 - 48 hours
Subjective/Interval History
-
Date of Service: December 29, 2024
Patient was seen and examined. He reported feeling better today.
Objective Data
-
Labs:
Laboratory Results
12/29/24 12/29/24
08:41 08:42
WBC 7.0
Hgb 13.0
Hct 36.3 L
Plt Count 113 L D
Sodium 136
Potassium 3.4 L
Chloride 106
Carbon Dioxide 29
BUN 6 L
Creatinine 0.4 L
Glucose 93
Calcium 8.9
Total Bilirubin 2.5 H
AST 73 H
ALT 64 H
Alkaline Phosphatase 74
Vital Signs:
Vital Signs
Temp Pulse Resp BP Pulse Ox
99.0 F 83 16 153/96 98
12/29/24 16:21 12/29/24 16:21 12/29/24 16:21 12/29/24 16:21 12/29/24 16:21
I&O
12/28/24 12/29/24 12/30/24
06:59 06:59 06:59
Intake Total 1140 / 1140 2340 / 2340 960 / 960
Balance 1140 / 1140 2340 / 2340 960 / 960
[2024-12-29] MEDS: KCL 40 MEQ PO (20:31)
[2024-12-29 23:00] VITALS: BP 157/89
[2024-12-29] MEDS: MELATONIN 5 MG PO (23:46)
[2024-12-30 03:00] VITALS: BP 118/75
[2024-12-30 07:24] VITALS: BP 116/78
--- NOTE | 2024-12-30 07:37 | W.PN.HOSP.TC ---
Today's Communication/Plan
-
taper off phenobarb today
Assessment / Plan
Assessment / Plan
Assessment/Plan
39-year-old man with past medical history significant for asthma and history of prior alcohol abuse who was brought to the emergency department after an emergency response in the hospital where he was visiting his and found to be unresponsive
in the elevator. Patient reported that he does drink alcohol but states amount of drinking has been reduced recently and stated that he drinks up to 6 bottles of nonalcoholic beer every day. He said his last drink was on 12/25/24 and he has not
been drinking due to his being in labor and just had a delivery.
Patient reported that he was slightly tremulous on 12/27/24 morning but not more so than usual. He denied prior history of withdrawal seizures. He denied any prior history of alcohol withdrawal syndrome with delirium tremens. He denies any other
drug use.
Patient was found by EMS unresponsive and he had a tongue bite. He was postictal on arrival to the emergency department. He did have a dislocation of the left shoulder and is status post shoulder reduction on and had propofol during the episode.
Brain MRI
IMPRESSION:
No acute intracranial abnormality noted.
Shoulder X-Ray
FINDINGS and IMPRESSION:
Reduction of dislocation is seen with anatomic alignment about the glenohumeral joint in comparison to study earlier in same day.
Likely fracture of the head of the proximal left humerus particularly involving the greater tuberosity.
Alcohol Use Disorder
- Last drink was 12/25/24
- The tongue biting, post-ictal depression, h/o etoh and labs are c/w seizure episode.
- Continue MSAS withdrawal protocol
-s/p IVF, continue thiamine, folate
- Continue phenobarbital taper --> try to taper off today so that patient can go home tomorrow
- UDS was positive for benzos and barbiturates, but patient received Ativan in the ER on 12/27/24 evening and also getting Phenobarb, both were given before the UDS
- case management
- psych consult as history seems inconsistent with the overall clinical picture of alcohol withdrawal and family saying he has not had much alcohol recently
- Patient is not currently interested in inpatient alcohol treatment program
- appreciate Neurology consult; MRI without acute event: EEG ordered
- ED provider filled out [employer] form.
Dislocated Shoulder from Suspected Seizure and Fall
- Was reduced in the ER
Proximal humerus fracture - I texted ortho for further recs
Anion Gap Metabolic Acidosis
- Patient had not eaten or drank any fluids for 2-3 days and also suspected alcohol use as well, suspected starvation ketoacidosis or alcoholic ketoacidosis
- Resolved rapidly with IV fluids
Transaminitis
-Patient's labs from October 2024 were borderline normal with his AST and ALT, now the levels are worse
-On admission, AST>ALT, by a ratio greater than 2:1 which strongly suggested alcoholic liver injury -- overall improving
Hypokalemia
-repleted, Magnesium OK
DVT PPX - SCDs. Lovenox.
Code status - Full Code
Anticipated Discharge: 24 - 48 hours
Subjective/Interval History
-
Date of Service: December 30, 2024
Objective Data
-
Labs:
Laboratory Results
12/30/24
06:32
WBC Pending
Hgb Pending
Hct Pending
Plt Count Pending
Sodium Pending
Potassium Pending
Chloride Pending
Carbon Dioxide Pending
BUN Pending
Creatinine Pending
Glucose Pending
Calcium Pending
Total Bilirubin Pending
AST Pending
ALT Pending
Alkaline Phosphatase Pending
Vital Signs:
Vital Signs
Temp Pulse Resp BP Pulse Ox
97.8 F 75 16 116/78 99
12/30/24 07:24 12/30/24 07:24 12/30/24 07:24 12/30/24 07:24 12/30/24 07:24
I&O
12/29/24 12/30/24 12/31/24
06:59 06:59 06:59
Intake Total 2340 / 2340 1440 / 1440
Balance 2340 / 2340 1440 / 1440
[2024-12-30 07:51] LABS: Hematocrit 37.4 % (39.0-52.0); Hemoglobin 12.9 g/dL (13.0-18.0); Mean Corp Hgb Conc. 34.5 g/dL (33.0-37.0); Mean Corpuscular Volume 96.4 fL (80.0-94.0); Platelet Count 122 10^3/uL (130-400); Red Cell Dist. Width 11.8 % (11.5-14.5)
[2024-12-30 08:26] LABS: ALT (SGPT) 65 U/L (0-50); AST (SGOT) 100 U/L (17-59); Albumin 4.0 g/dl (3.5-5.0); Alkaline Phosphatase 69 U/L (38-126); Blood Urea Nitrogen 5 mg/dl (9-20); Calcium 9.2 mg/dl (8.4-10.2); Carbon Dioxide 27 mmol/L (22-30); Chloride 105 mmol/L (98-107); Estimated Creatinine Clearance > 125 ml/min; Glucose 96 mg/dl (70-99); Magnesium 2.1 mg/dl (1.6-2.3); Potassium 3.6 mmol/L (3.5-5.1); Sodium 139 mmol/L (135-145); Total Protein 6.7 g/dl (6.3-8.2); eGFR > 60.00
[2024-12-30] MEDS: THIAMINE INJECTION 200 MG IV (08:54)
[2024-12-30] MEDS: FOLVITE 1 MG PO (08:54)
[2024-12-30] MEDS: LUMINAL 64.8 MG PO (08:55)
--- NOTE | 2024-12-30 09:39 | EEG.RPT ---
Electroencephalogram Report
Recording
Date of EE12/30/24
Type of EEG: Routine
Length of EEG recordin minutes
Done with Video Recording: Yes
Patient Status: Inpatient
Recording Conditions: Awake and Drowsy
Hyperventilation Performed: Yes
Photic Stimulation Performed: Yes
Report
LESS THAN 1 HOUR EEG REPORT
LESS THAN 1 HOUR EEG INTERPRETATION:
Unremarkable EEG for age
CLINICAL CORRELATION:
A normal EEG does not rule out a diagnosis of epilepsy. If clinical suspicion for seizure persists, a prolonged recording may be warranted.
Clinical correlation is advised.
METHODS:
A 21 channel digitized electroencephalogram (EEG) was performed using the 10/20 international system of electrode placement and one-lead of ECG recorded. Video was recorded. Persyst quantitative EEG analysis was performed.
ELECTROENCEPHALOGRAPHER IMPRESSION(S):
Quality of study
Good
Background
There was an unremarkable anterior-posterior voltage gradient of alpha frequency.
With eye opening the background activity changed to a low voltage mixture of frequencies.
There were no significant asymmetries of background activity noted.
Sleep: Drowsiness present
Hyperventilation: No driving
Photic Stimulation: No driving
ECG: Normal sinus rhythm
[2024-12-30 11:06] VITALS: BP 138/91
--- NOTE | 2024-12-30 12:51 | W.DCSUMMARY ---
Discharge Summary
Discharge Data
Date of Admission: 12/30/24
Date of Discharge: 12/30/24
-
Pending Results: No
Hospital Course
Discharging Physician : Dr. Jamila Villeda
Disposition : Home
Primary care physician : Unknown
Principal Discharge diagnosis : Seizure
Hospital Course :
Mr. Patel Calixto is a 39 yo man with hx alcohol use disorder (now sober x 6 months after finding fatty liver disease), asthma, presents to the ER when he was found unresponsive in the elevator. Patient was found unresponsive with tongue bite with
left shoulder dislocation. Triage vitals stable. Labs with elevated liver enzymes AST > ALT. Given tongue biting and post ictal state, he was admitted to medicine with Neurology consulting for treatment of seizure. Patient reported drinking
alcohol in past, concern for alcohol related seizure brought up given liver injury pattern and history alcohol abuse, tremulousness. MRI without acute finding. Patient was started on a phenobarbital taper. On further discussions with patient and
patient's he continues to deny any recent alcohol use. reports that she is able to keep a close eye on him, and is 100% positive that there has been no alcohol abuse. Patient and are eager for discharge today. With this
information, OK to stop Phenobarbital taper. Patient's seizure occurred in the setting of significant sleep deprivation and little oral intake. Potentially this triggered seizure. I also discussed with patient and that it is possible he has
a new diagnosis of epilepsy. He knows he cannot drive for at least 6 months, and should not be left alone holding the new baby at home.
Patient is discharged without new medications. [employer] form signed by the ER. Liver enzymes have trended down and he is given a script for repeat liver enzymes in 5-7 days. Elevated liver enzymes may be explained from dehydration/ muscle injury
post seizure? He has a history of fatty liver disease. He is told to follow up with PCP within one week and will also follow up with GI physician.
Post seizure patient had left shoulder dislocation and finding of proximal left humerus fracture. Case discussed with Dr. Padilla, recommends continued sling and outpatient follow up. Patient is told he can continue to Motrin as needed for pain.
Time spent on discharge was 31 minutes.
Important imaging findings :
Shoulder X-Ray 12/27/24
FINDINGS and IMPRESSION:
There is anterior and inferior dislocation of the proximal left humerus/humeral head with respect to the glenoid portion of the scapula and accompanying fracture most likely involving the greater tuberosity of the proximal left humerus, evaluation
limited due to osseous overlap.
Shoulder X-Ray 12/27/24
FINDINGS and IMPRESSION:
Reduction of dislocation is seen with anatomic alignment about the glenohumeral joint in comparison to study earlier in same day.
Likely fracture of the head of the proximal left humerus particularly involving the greater tuberosity.
Brain MRI 12/29/24
IMPRESSION:
No acute intracranial abnormality noted.
Orbit X-Ray 12/29/24
IMPRESSION:
No evidence of metallic orbital radiopaque foreign body
Procedure findings :
Discharge Plan
-
Patient Disposition: Home (Routine Discharge)
Discharge Diagnosis/Procedures: Seizure
Diet: Regular
Activity: As tolerated
Additional Activity: Keep left arm in sling
Driving Restrictions: No driving
Bathing Restrictions: None
Activity Restrictions/Additional Instructions:
No driving until you are seizure free x 6 months (you will need to follow up with outpatient physicians). Please follow up with your PCP within one week.
Referrals:
Ced Padilla MD [Active, Orthopedics] - in less than 1 week
Referral Note: Proximal left humerus fracture
UNKNOWN - PT DOES,NOT KNOW [Family Provider] - in less than 1 week
Discharge Orders:
Discharge Patient (As Directed); Ordered 12/30/24
Ordered By: Jamila Villeda
Discharge Date and Time
Print Language: ESTONIAN
--- NOTE | 2024-12-30 13:14 | W.DS.TRANS ---
DC Summary - [facility]
-
Discharge Instructions:
Discharge Diagnosis/Procedures Seizure
Diet Regular
Activity As tolerated
Driving Restrictions No driving
Bathing Restrictions None
Instructions:
Stand-Alone Forms:
Changes to Home Medications: Yes
Discharge Medications:
Home Medication Changes
Pending Results: No
--- NOTE | 2024-12-30 13:57 | CM ---
CM following re: discharge planning.
Reviewed pt's chart, met with pt.
Discharge order noted. Pt is aware and he stated he met with [facility] and not interested in going to inpatient D&A rehab. Pt stated he has supportive family and will be working on his sobriety on his own. Pt expressed his motivation to stay sober:
family, 3 young children: 6, 4 and one week old. Pt stated he went over stopping smoking and he strongly feels he will stop drinking. CM vent over behavioral modification techniques.
D/C plan: home no need. Father to transport.
--- NOTE | 2024-12-30 15:15 | W.PN.NEURO.1 ---
Addendum entered and electronically signed by Abran Del Castillo MD 12/30/24 20:02:
I have seen and examined the patient today on 12/30/2024, along with the nurse practitioner Ava Boyd. I agree with the nurse practitioner Ava Boyd's assessment and the management plan. The following is my assessment and the
management plan.
The patient is a 39 years old male who had an unwitnessed fall and was found unresponsive in the hospital elevator on 12/27/2024. The patient says that he was severely sleep deprived at the time he likely had a seizure. The patient has no
recollection of the event. The patient had a fall was found to have a tongue bite which raises suspicion for a seizure.
Neurologic examination:
The patient is alert and oriented x 3
The speech is clear
The cranial nerves II to XII are grossly intact
The motor strength is grossly 5/5 bilaterally in the upper and lower extremities
The sensations are intact
The cerebellar examination does not show limb ataxia.
The patient likely had a generalized tonic-clonic seizure with a tongue bite, fall and loss of consciousness likely secondary to severe sleep deprivation. At this time the patient is not a candidate for antiepileptic medications as it is the first
event and likely the seizure was provoked by severe sleep deprivation as per history. The patient has a history of alcohol use disorder but he says that he quit drinking about 9 months ago. MRI of the brain done on 12/29/2024 did not show acute
intracranial abnormality.
Seizure precautions including no driving for 6 months and this event will need to be reported to [facility] as per [facility] law. I had a detailed discussion with the patient regarding the seizure precautions and he verbalized understanding
of our discussion.
Continue to avoid alcohol.
Continue thiamine 100 mg daily.
Follow-up with the neurology in the clinic as an outpatient in 2 weeks.
Original Note:
Today's Communication / Plan
-
.
Neuro Assessment/Plan
Assessment
This is a 39-year-old right-handed man was found unresponsive in a hospital elevator on 12/27/2024.
Assessment and Plan:
I. Symptomatic seizure; significant sleep deprivation is a possible trigger.
II. Former alcohol use disorder, quit drinking ~9 months ago.
III. Increased QTcB Int
-Brain MRI noncontrast 12/29/24: no acute abnormalities.
-EEG 12/30/24: Unremarkable EEG for age.
Plan
-No role for antiseizure medication given this was a first event likely provoked by sleep deprivation. If further s/s of seizure will need to start an antiseizure medication.
-No driving, this event will need to be reported to [facility] per [facility] law.
-Continue to avoid alcohol.
-Continue thiamine 100mg daily.
-Seizure precautions.
-Follow-up with Neurology as an outpatient.
Subjective/Objective
Subjective Data
Date of Service: December 30, 2024
No acute events overnight.
Objective Data
Vital Signs
Temp Pulse Resp BP Pulse Ox
98.4 F 93 18 138/91 99
12/30/24 11:06 12/30/24 11:06 12/30/24 11:06 12/30/24 11:06 12/30/24 11:06
Lab Results
12/30/24 06:32
12/30/24 06:32
PT 12.9 Sec (11.4-14.6) 12/28/24 06:25
INR 0.94 12/28/24 06:25
APTT 26.7 Sec (23.4-35.0) 12/28/24 06:25
Sodium 139 mmol/L (135-145) 12/30/24 06:32
Potassium 3.6 mmol/L (3.5-5.1) 12/30/24 06:32
BUN 5 mg/dl (9-20) L 12/30/24 06:32
Glucose 96 mg/dl (70-99) 12/30/24 06:32
Calcium 9.2 mg/dl (8.4-10.2) 12/30/24 06:32
Phosphorus 3.9 mg/dl (2.5-4.5) 12/30/24 06:32
Ur Buprenorphine Negative (Negative) 12/28/24 11:43
Patient Allergies
No Known Allergies Allergy (Verified 12/27/24 17:47)
Review of Systems
-
History Source: Patient
Constitutional: Sleep Disturbance
EENT: Negative Blurry Vision, Decreased Vision or Swallowing Difficulty
Respiratory: Negative Cough or Trouble Breathing
Cardiac: Negative Chest Pain or Palpitations
Neuro: Negative Dizzy, Headache, Weakness, Numbness, Ataxia, Tremors or Speech Problem
Physical Exam
-
General: Well Developed, Well Nourished and No Apparent Distress
Eyes: No Ptosis and PERRLA
HEENT: Normocephalic and Atraumatic
Neck: Full Range of Motion
Respiratory: No Dyspnea
GI: Non-distended
Extremities: No Clubbing, No Cyanosis and No Edema
Extended Neurological Exam
Mood & Affect: Mood Unremarkable and Affect Unremarkable
Attention Span & Concentration: Awake, Alert, Interactive and No Difficulty with 2 Step Request
Memory: Unremarkable and Able to Recall
Tremor: Hand Tremor Absent and Head Tremor Absent
Involuntary Movement: None
Speech: Quality Unremarkable and Quantity Unremarkable
Cranial Nerve II: Left Eye: Visual Holloway Grossly Intact
Cranial Nerve II: Right Eye: Visual Holloway Grossly Intact
Cranial Nerves III, IV, : Extraocular Movement: Extraocular Movement Full in all Directions
Cranial Nerve VII: Facial Symmetry: Normal Facial Symmetry
Cranial Nerve VIII: Hearing: Unremarkable Hearing to Normal Conversational Volume
Cranial Nerve XII: Tongue Protusion: Midline
Muscle Strength, Overall: Full Throughout
Pronator Drift: No Drift in Upper Extremities
Coordination: [id number] Testing Unremarkable
Gait & Station: Up from Seated Without Problem and Unable to Assess
Data Reviewed
-
CT Head: Report Reviewed and Image Reviewed
MRI Head: Report Reviewed and Image Reviewed
EEG: Report Reviewed
Labs: Report Reviewed
Reviewed with: Physician and Patient
--- NOTE | 2024-12-30 15:38 | PTCARENOTE ---
Gaurang from security able to locate pts wallet and nurse college cord. pts RX script also provided to give back to pt upon picking up other mentioned belongings.
== END 2024-12-30 15:10 | disposition home or self-care (01) | DRG 101 ==
LOC: 2 NORTH 07:43
PROVIDERS: Hospitalist; ADMITTING PHYSICIAN Internal Medicine; ATTENDING PHYSICIAN Student in an Organized Health Care Education/Training Program; CONSULT PHYSICIAN Psychiatry & Neurology Neurology; EMERGENCY PHYSICIAN Student in an Organized Health Care Education/Training Program; OTHER PHYSICIAN Psychiatry & Neurology Psychiatry
DX: R56.9 Unspecified convulsions (principal); E87.20 Acidosis, unspecified; E87.6 Hypokalemia; Z72.820 Sleep deprivation
CPT/HCPCS: 23650; 70030; 70450; 70551; 73020; 73030; 80053; 80306; 80307; 81003; 81015; 82077; 82550; 82962; 82977; 83735; 84100; 84132; 84443; 85025; 85027; 85610; 85730; 93005; 95816; 96374; 96375; 99152; 99285